=== PATIENT | male | born 1950 | race Caucasian/White ===

== ENCOUNTER → 2018-12-05 | Outpatient (CLI) | payer MEDICARE ==
--- NOTE | 2018-12-05 16:04 | RAD ---
EXAM: Dual energy x-ray absorptiometry (DEXA). HISTORY: Prostate cancer. Hormonal therapy. COMPARISON: None. TECHNIQUE: Dual energy x-ray absorptiometry of the lumbar spine and right hip was performed. Calculation of bone mineral density based on standard deviations above or below the expected young adult normal value (T-score) was completed. FINDINGS: The average bone mineral density in the 1st through 4th lumbar vertebrae is 1.364 g/cmxcm, corresponding with a T-score of 1.2. The average total bone mineral density in the right femoral neck is 0.959 g/cmxcm, corresponding with a T-score of -0.2. IMPRESSION: Normal bone mineral density. Note: Definitions established by the World Health Organization: 1. Normal: T-score is -1.0 or above. 2. Osteopenia: T-score is between -1.0 and -2.5 . 3. Osteoporosis: T-score is -2.5 or below. Electronically signed by: Mariely Cabello MD (12/05/2018 4:01 PM) [id number]
== END | disposition home or self-care (01) ==
LOC: DXRAD 11:21
PROVIDERS: ATTEND Internal Medicine
DX: C61 Malignant neoplasm of prostate (principal); M89.9 Disorder of bone, unspecified; I12.9 Hypertensive chronic kidney disease with stage 1 through stage 4 chronic kidney disease, or unspecified chronic kidney disease; E11.22 Type 2 diabetes mellitus with diabetic chronic kidney disease; N18.3 Chronic kidney disease, stage 3 (moderate); F10.20 Alcohol dependence, uncomplicated; Z79.818 Long term (current) use of other agents affecting estrogen receptors and estrogen levels
CPT/HCPCS: 77080

== ENCOUNTER → 2019-07-16 | Outpatient (CLI) | payer MEDICARE ==
[~2019-07-16] MED LIST: IOHEXOL 240 MG/ML 50ML VIAL. ONE; IOHEXOL 300 MG/ML 75 ML VIAL. IV ONE
--- NOTE | 2019-07-16 16:25 | RAD ---
EXAM: BONE SCINTIGRAPHY. HISTORY: Prostate cancer. TECHNIQUE: Following the intravenous injection of 25 mCi of Tc-99m labeled methylene diphosphonate (MDP), delayed images of the whole body were performed in anterior and posterior projections. COMPARISON: Today's CT. FINDINGS: Uptake along the right superior acetabulum corresponds with an ill-defined sclerotic region on CT. This is not clearly degenerative and is concerning for metastatic deposit. Another smaller focus in the left superior acetabulum is also concerning for metastasis. Intense uptake in the midline at L5-S1 is likely discogenic. Additional degenerative uptake is noted at the right first metatarsophalangeal joint, left midfoot, and both sternoclavicular/acromioclavicular joints. Nonfocal mild uptake within the thoracic spine and along the left aspect of the cervical spine is also likely degenerative. IMPRESSION: 1. Findings concerning for metastatic deposits within both superior acetabula. Correlate with PSA levels. Electronically signed by: Kwasi Smith MD (07/16/2019 4:22 PM) [facility]
--- NOTE | 2019-07-16 16:28 | RAD ---
EXAM: CT ABDOMEN/PELVIS WITH CONTRAST. HISTORY: Prostate cancer. TECHNIQUE: Computed tomography of the abdomen and pelvis was performed after the intravenous administration of iodinated contrast. COMPARISON: Today's scintigraphy. FINDINGS: Lung windows through the visualized portions of the bases reveal a 3 mm uncalcified nodule in the right lower lobe on image 12. There is mild dependent atelectasis. There are atherosclerotic calcifications of the coronary arteries. An aortic valve calcifications are also noted. Bone windows reveal an ill-defined sclerotic lesion within the right superior acetabulum. There is a small more well-defined sclerotic focus within the left superior acetabulum more typical of a metastatic deposit. A small sclerotic focus within the left aspect of L4 is indeterminate but concerning in this setting. There are bilateral L5 pars interarticularis defects. There is severe degenerative disc disease at L5-S1. The liver, gallbladder, pancreas, adrenal glands, spleen and kidneys are unremarkable. There are no pathologically enlarged retroperitoneal or pelvic lymph nodes. The prostate is not enlarged for patient age. No focal mass or extracapsular extension is seen. There is mild diffuse bladder wall thickening. The appendix is not inflamed. There is no small bowel obstruction. A moderate umbilical hernia contains only fat. IMPRESSION: 1. Sclerotic foci within the superior acetabula bilaterally are concerning for metastatic deposits in this setting. Another small focus of suspected and L4. Correlate with PSA levels. 2. Moderate supraumbilical hernia containing only fat. 3. Diffuse bladder wall thickening indicates chronic outlet obstruction or inflammation. 4. Aortic valve calcifications. Correlate for aortic stenosis. *One or more of the following individualized dose reduction techniques were utilized for this examination: 1. Automated exposure control. 2. Adjustment of the mA and/or kV according to patient size. 3. Use of iterative reconstruction technique. Electronically signed by: Kwasi Smith MD (07/16/2019 4:25 PM) [facility] [place]
== END | disposition home or self-care (01) ==
LOC: NM 08:47
PROVIDERS: ATTEND Internal Medicine
DX: C61 Malignant neoplasm of prostate (principal); K42.9 Umbilical hernia without obstruction or gangrene; I35.0 Nonrheumatic aortic (valve) stenosis; I25.10 Atherosclerotic heart disease of native coronary artery without angina pectoris; I70.0 Atherosclerosis of aorta; J98.11 Atelectasis; M51.37 Other intervertebral disc degeneration, lumbosacral region
CPT/HCPCS: 74177; 78306; A9503; Q9967

== ENCOUNTER → 2021-06-07 | Outpatient (CLI) | payer MEDICARE ==
--- NOTE | 2021-06-07 14:12 | RAD ---
US DPLX VENOUS EXTREMITY LOWER LT History: Reason: LLE SWELLING / Spl. Instructions: / History: Comparison: None. Technique: Multiple longitudinal and transverse high resolution real-time images of the venous system of left lower extremity were obtained with color and Doppler sampling. Findings: Nonocclusive thrombus within the left posterior tibial and peroneal veins. Patent left common femoral , superficial femoral, deep femoral and popliteal veins. Left lower extremity subcutaneous edema. Results discussed with clinician by cardiovascular technologist at 2:10 PM on 02/04/2021. Impression: 1. Deep vein thrombosis within the left posterior tibial and peroneal veins. Electronically signed by: Jerome Molina DO (06/07/2021 2:10 PM) [id number]
== END ==
LOC: US 13:21
PROVIDERS: ATTEND Internal Medicine Cardiovascular Disease
DX: I82.452 Acute embolism and thrombosis of left peroneal vein (principal); I82.442 Acute embolism and thrombosis of left tibial vein; I11.0 Hypertensive heart disease with heart failure; I50.32 Chronic diastolic (congestive) heart failure; M79.89 Other specified soft tissue disorders
CPT/HCPCS: 93971